=== PATIENT | female | born 1975 | race Caucasian/White ===

== ENCOUNTER 2020-12-29 20:52 | Emergency (ER) | payer SELFPAY ==
[~2020-12-29] VITALS: Ht 160 cm; Wt 85.4 kg
[2020-12-29 21:02] VITALS: BP 106/64
[2020-12-29] MEDS ORDERED: ketorolac trometh. 30mg/ml inj. IM ONE (21:50)
[2020-12-29] MEDS ORDERED: HYDROcodone/acetaminophen 10/325mg tab PO ONE (21:50)
[2020-12-29] MEDS ORDERED: METH4TAB81 PO (21:51)
== END 2020-12-29 22:56 | disposition home or self-care (01) ==
LOC: ER 20:53
DX: S39.012A Strain of muscle, fascia and tendon of lower back, initial encounter (principal); G89.29 Other chronic pain; Z79.899 Other long term (current) drug therapy; X58.XXXA Exposure to other specified factors, initial encounter; Y93.89 Activity, other specified; Y92.89 Other specified places as the place of occurrence of the external cause; Y99.8 Other external cause status
CPT/HCPCS: 96372; 99283; J1885